=== PATIENT | female | born 1975 | race Caucasian/White ===

== ENCOUNTER 2016-05-29 17:54 | Emergency (ER) | payer BC ==
--- NOTE | 2016-05-29 18:34 | ER Document Report ---
ED Medical Screen (RME) - General Chief Complaint: Chest Pain Stated Complaint: PALPITATIONS,CHEST PAIN, DIZZY Time seen by provider: 18:30 Mode of Arrival: Wheelchair Information source: Patient Notes: 40-year-old female presents to ED chest pain with skipping heart rate. States she's been given body aches for a year now. Since 4 PM chest pain in the skipping heartbeat started. States she was short of breath and nauseated. States right now she is not short of breath or headache and has no nausea. Denies any cardiac history. She went to the urgent care 2 days ago for her bodyaches. I have greeted and performed a rapid initial assessment of this patient. A comprehensive ED assessment and evaluation of the patient, analysis of test results and completion of medical decision making process will be conducted by an additional ED providers. TRAVEL OUTSIDE OF THE [place] IN LAST 30 DAYS: No - Related Data Allergies/Adverse Reactions: No Known Allergies Allergy (Verified 08/13/15 20:29) Past Medical History - Past Medical History Cardiac Medical History: Denies: Hx Coronary Artery Disease, Hx Heart Attack, Hx Hypertension Pulmonary Medical History: Denies: Hx Asthma, Hx Bronchitis, Hx COPD, Hx Pneumonia Neurological Medical History: Denies: Hx Cerebrovascular Accident, Hx Seizures GI Medical History: Reports: Hx Gastroesophageal Reflux Disease, Hx Hiatal Hernia Musculoskeltal Medical History: Reports Hx Arthritis Psychiatric Medical History: Reports: Hx Anxiety Past Surgical History: Reports: Hx Section, Hx Cholecystectomy, Hx Oral Surgery, Hx Orthopedic Surgery, Hx Tubal Ligation. Denies: Hx Hysterectomy - Immunizations Hx Diphtheria, Pertussis, Tetanus Vaccination: Yes Physical Exam - Vital signs Vitals: Temp Pulse Resp BP Pulse Ox 98.5 F 94 16 131/80 H 100 05/29/16 18:24 05/29/16 18:24 05/29/16 18:24 05/29/16 18:24 05/29/16 18:24 Course - Vital Signs Vital signs: Temp Pulse Resp BP Pulse Ox 98.5 F 94 16 131/80 H 100 05/29/16 18:24 05/29/16 18:24 05/29/16 18:24 05/29/16 18:24 05/29/16 18:24
[2016-05-29] MEDS ORDERED: ASPIRIN 81 MG TABLET, CHEWABLE PO ONE (18:35)
--- NOTE | 2016-05-29 18:42 | EKG REPORT ---
SEVERITY:- NORMAL ECG - SINUS RHYTHM : Confirmed by: Nathalia Matthews MD 29-May-2016 18:41:17
[2016-05-29 18:58] LABS: ABSOLUTE EOSINOPHILS # (AUTO) 0.1 10^3/uL (0.0-0.6); ABSOLUTE LYMPHOCYTES (AUTO) 1.7 10^3/uL (0.5-4.7); ABSOLUTE MONOCYTES (AUTO) 0.7 10^3/uL (0.1-1.4); ABSOLUTE NEUT (AUTO) 7.7 10^3/uL (1.7-8.2); BASOPHILS % (AUTO) 0.4 % (0-2); EOSINOPHILS % (AUTO) 0.6 % (0-6); HEMATOCRIT 41.6 % (36.0-47.0); HEMOGLOBIN 13.3 g/dL (12.0-15.5); HGB HCT DIFFERENCE -1.7; LYMPHOCYTES % (AUTO) 16.8 % (13-45); MEAN CORPUSCULAR HEMOGLOBIN 29.3 pg (27.0-33.4); MEAN CORPUSCULAR HGB CONC 32.1 g/dL (32.0-36.0); MEAN CORPUSCULAR VOLUME 92 fl (80-97); MONOCYTES % (AUTO) 7.1 % (3-13); RED BLOOD COUNT 4.55 10^6/uL (3.72-5.28); RED CELL DISTRIBUTION WIDTH 13.5 % (11.5-14.0); SEGMENTED NEUTROPHILS % (AUTO) 75.1 % (42-78); WHITE BLOOD COUNT 10.2 10^3/uL (4.0-10.5)
[2016-05-29 19:03] LABS: APPEARANCE,URINE CLEAR; BILIRUBIN,URINE NEGATIVE (NEGATIVE); GLUCOSE, URINE NEGATIVE (NEGATIVE); KETONES,URINE NEGATIVE (NEGATIVE); LEUKOCYTE ESTERASE,URINE NEGATIVE (NEGATIVE); NITRITE,URINE NEGATIVE (NEGATIVE); PROTEIN,URINE NEGATIVE (NEGATIVE); URINE SPECIFIC GRAVITY 1.012; UROBILINOGEN,URINE NEGATIVE mg/dL (<2.0)
[2016-05-29 19:19] LABS: ALANINE AMINOTRANSFERASE 26 U/L (9-52); ALBUMIN 4.6 g/dL (3.5-5.0); ALKALINE PHOSPHATASE 59 U/L (38-126); ANION GAP 13 (5-19); ASPARTATE AMINO TRANSFERASE 19 U/L (14-36); BILIRUBIN,TOTAL 0.4 mg/dL (0.2-1.3); BLOOD UREA NITROGEN 15 mg/dL (7-20); CALCIUM 9.8 mg/dL (8.4-10.2); CARBON DIOXIDE 25 mmol/L (22-30); CHLORIDE 104 mmol/L (98-107); CREATINE KINASE 71 U/L (30-135); CREATININE RESULT 0.78 mg/dL (0.52-1.25); GLUCOSE 107 mg/dL (75-110); LIPASE 89.9 U/L (23-300); POTASSIUM 4.4 mmol/L (3.6-5.0); SODIUM 141.9 mmol/L (137-145); TOTAL PROTEIN 7.4 g/dL (6.3-8.2)
[2016-05-29 19:29] LABS: CREATINE KINASE MB 0.28 ng/mL (<4.55)
[2016-05-29 19:31] LABS: TROPONIN I < 0.012 ng/mL
--- NOTE | 2016-05-29 21:30 | ER Document Report ---
ED General - General Mode of Arrival: Wheelchair Information source: Patient TRAVEL OUTSIDE OF THE [place] IN LAST 30 DAYS: No - HPI Associated symptoms: Other - see above <CARLIE PALM - Last Filed: 05/30/16 00:28> <TIMOTHY CHATMAN - Last Filed: 05/30/16 03:09> - General Chief Complaint: Chest Pain Stated Complaint: PALPITATIONS,CHEST PAIN, DIZZY Notes: 40 year old female with no history of blood clots presents to the ED complaining of bilateral "burning" chest pain and bilateral upper abdominal pain that started earlier today. Patient is additionally complaining of experiencing heart flutter while walking. Patient states that she has had heart flutter in the past, but never while walking. Patient also claims that she has recently recovered from mono and states that she has been feeling off since then. Patient denies any heart palpitations, but states that her heart is beating hard and that she has an abnormal taste in her mouth secondary to this. Patient states that she takes Ativan as needed to help her sleep and a vitamin B12 shot. Patient has a past surgical history of a cholecystectomy, , and ovarian cyst removal. Patient denies starting any new medication. Patient also states that she had a thyroid test performed "a long time ago." (CARLIE PALM) - Related Data Allergies/Adverse Reactions: No Known Allergies Allergy (Verified 05/29/16 18:33) Past Medical History - General Information source: Patient - Social History Smoking Status: Never Smoker Chew tobacco use (# tins/day): No Frequency of alcohol use: None Drug Abuse: None Family History: Reviewed & Not Pertinent Patient has suicidal ideation: No Patient has homicidal ideation: No GI Medical History: Reports: Hx Gastroesophageal Reflux Disease, Hx Hiatal Hernia Musculoskeltal Medical History: Reports Hx Arthritis Psychiatric Medical History: Reports: Hx Anxiety Past Surgical History: Reports: Hx Section, Hx Cholecystectomy, Hx Oral Surgery, Hx Orthopedic Surgery, Hx Tubal Ligation - Immunizations Hx Diphtheria, Pertussis, Tetanus Vaccination: Yes <CARLIE PALM - Last Filed: 05/30/16 00:28> Review of Systems - Review of Systems Constitutional: See HPI, Recent illness - mono EENT: No symptoms reported Cardiovascular: See HPI, Chest pain - bilateral chest, Other - heart flutter while walking. denies: Palpitations Respiratory: No symptoms reported Gastrointestinal: See HPI, Abdominal pain - upper abdomen Genitourinary: No symptoms reported Female Genitourinary: No symptoms reported Musculoskeletal: No symptoms reported Skin: No symptoms reported Hematologic/Lymphatic: No symptoms reported Neurological/Psychological: See HPI, Sensory change - Abnormal taste the mouth secondary to a hard beating heart. -: Yes All other systems reviewed and negative <CARLIE PALM - Last Filed: 05/30/16 00:28> Physical Exam - Vital signs Interpretation: Normal - General General appearance: Alert In distress: None - HEENT Head: Normocephalic, Atraumatic Eyes: Normal Extraocular movements intact: Yes Pupils: PERRL - Respiratory Respiratory status: No respiratory distress Chest status: Nontender Breath sounds: Normal Chest palpation: Normal - Cardiovascular Rhythm: Regular Heart sounds: Normal auscultation - Abdominal Inspection: Normal - Back Back: Normal - Extremities General upper extremity: Normal inspection, Normal ROM General lower extremity: Normal inspection, Normal ROM - Neurological Neuro grossly intact: Yes Cognition: Normal Orientation: AAOx4 Ronald Coma Scale Eye Opening: Spontaneous [place] Coma Scale Verbal: Oriented Ronald Coma Scale Motor: Obeys Commands [place] Coma Scale Total: 15 Speech: Normal - Psychological Associated symptoms: Normal affect, Normal mood - Skin Skin Temperature: Warm Skin Moisture: Dry Skin Color: Normal <CARLIE PALM - Last Filed: 05/30/16 00:28> Course - Laboratory Result Diagrams: 05/29/16 18:35 05/29/16 18:35 <CARLIE PALM - Last Filed: 05/30/16 00:28> - Laboratory Result Diagrams: 05/29/16 18:35 05/29/16 18:35 - EKG Interpretation by Ne EKG shows normal: Sinus rhythm Rate: Normal Rhythm: NSR <TIMOTHY CHATMAN - Last Filed: 05/30/16 03:09> - Re-evaluation Re-evalutation: 05/30/16 Patient feels somewhat better after GI cocktail. EKG with no acute findings. Patient is not tachycardic here. Blood work within normal limits including negative troponin, normal TSH, and negative d-dimer. The patient is instructed to follow-up with her doctor and return if she has any further concerns. No risk factors for coronary artery disease. Stable for discharge. (TIMOTHY CHATMAN) - Vital Signs Vital signs: Temp Pulse Resp BP Pulse Ox 97.2 F 66 14 103/64 99 05/29/16 23:01 05/29/16 23:01 05/29/16 23:01 05/29/16 23:01 05/29/16 23:01 (CARLIE PALM) (TIMOTHY CHATMAN) Discharge <CARLIE PALM - Last Filed: 05/30/16 00:28> <TIMOTHY CHATMAN - Last Filed: 05/30/16 03:09> - Discharge Clinical Impression: Palpitations, Chest wall pain Condition: Stable Disposition: HOME, SELF-CARE Instructions: Chest Pain of Unclear Cause ([facility]), Palpitations (Irregular or Rapid Heartrate) ([facility]) Additional Instructions: Please follow-up with your doctor this week. Forms: Return to Work Scribe Attestation: 05/30/16 03:08 I personally performed the services described in the documentation, reviewed and edited the documentation which was dictated to the scribe in my presence, and it accurately records my words and actions. (TIMOTHY CHATMAN) Scribe Documentation - Scribe Written by Sharyn:: Sharyn Mendosa, 05/29/2016 22:48 acting as scribe for :: Dg <CARLIE PALM - Last Filed: 05/30/16 00:28>
[2016-05-29] MEDS ORDERED: SUCRALFATE 1 GM TABLET PO ONE (21:41)
[2016-05-29] MEDS ORDERED: MAG HYDROX/AL HYDROX/SIMETH SUSP 30 ML UDCUP PO ONE (21:41)
[2016-05-29] MEDS ORDERED: SIMETHICONE 80 MG TAB.CHEW PO ONE (21:41)
[2016-05-29 23:16] VITALS: BP 103/64
== END 2016-05-29 23:01 | disposition home or self-care (01) ==
LOC: ER 17:54
DX: R00.2 Palpitations (principal); R07.89 Other chest pain; R42 Dizziness and giddiness; R10.10 Upper abdominal pain, unspecified
CPT/HCPCS: 36415; 80053; 81001; 82550; 82553; 83690; 84443; 84484; 84703; 85025; 85379; 93005; 93010; 99284

== ENCOUNTER 2016-06-01 10:28 | Day surgery (SDC) | payer BC ==
[~2016-06-01 10:28] MED LIST: DIPHENHYDRAMINE HCL 50 MG/ML VIAL ONE; EPINEPHRINE INJ 1 MG/10 ML DISP.SYRIN ONE; FLUMAZENIL INJ 0.5 MG/5 ML VIAL IV ONE; GLUCAGON,HUMAN RECOMB 1 MG INJ ONE; MIDAZOLAM 2 MG/2 ML INJ ONE; NALOXONE HCL INJ/PF 0.4 MG/1 ML SDV ONE; ONDANSETRON HCL INJ/PF 4 MG/2 ML SDV ONE; PROMETHAZINE HCL INJ 25 MG/1 ML VIAL ONE
[2016-06-01] MEDS: MIDAZOLAM 2 MG/2 ML INJ ONE ×2 (11:07→11:11)
[2016-06-01] MEDS: FENTANYL CITRATE INJ/PF 100 MCG/2 ML AMPUL ONE ×2 (11:09→11:15)
--- NOTE | 2016-06-01 11:29 | Operative Report ---
Operative Report DATE OF SURGERY: 06/01/16 Operative Report: The risks benefits and alternatives of the procedure explained to the patient in detail and informed consent is obtained that GIF Olympus video scope was inserted into the patient's mouth and hypopharynx the esophagus is identified intubated and insufflated the scope was then advanced through the esophagus stomach and duodenum retroflexion maneuver is done the esophagus stomach and first and second portions of the duodenum examined PREOPERATIVE DIAGNOSIS: Epigastric pain POSTOPERATIVE DIAGNOSIS: Gastritis, duodenitis, hiatal hernia. Biopsies obtained rule out Helicobacter pylori. OPERATION: EGD with biopsy SURGEON: ALEJANDRA DE LA ROSA ANESTHESIA: Moderate Sedation - 6 mg Versed, 125 g of fentanyl. TISSUE REMOVED OR ALTERED: Gastric specimens obtained COMPLICATIONS: None. ESTIMATED BLOOD LOSS: none. INTRAOPERATIVE FINDINGS: Normal esophagus. duodenitis. Gastritis with erosions PROCEDURE: Patient tolerated the procedure well. No immediate postprocedure complications are noted. Patient discharged in good condition. Discharge date 06/01/2016. Discharge diet: Regular. Discharge activity: Regular. Patient does have a 2-3 week follow-up to discuss findings. We'll await on biopsies and treat for Helicobacter pylori if positive. Patient is instructed to call the office or proceed to the emergency room after any further problems or questions.
[2016-06-01 12:25] VITALS: BP 108/66
== END 2016-06-01 12:30 | disposition home or self-care (01) ==
LOC: END 10:28
PROVIDERS: ATTEND Internal Medicine Gastroenterology
PROC: 0DB68ZX Excision of Stomach, Via Natural or Artificial Opening Endoscopic, Diagnostic (ICD-10-PCS; principal; 2016-06-01 11:00)
DX: K29.80 Duodenitis without bleeding (principal); K29.50 Unspecified chronic gastritis without bleeding; K44.9 Diaphragmatic hernia without obstruction or gangrene; L40.9 Psoriasis, unspecified; Z79.899 Other long term (current) drug therapy
CPT/HCPCS: 43239; 88342 ×2; 88305 ×2; J2250; J3010; J1610; J2310; J0171; J1200; J2405; J2550; J3490

== ENCOUNTER 2016-08-09 10:55 | Emergency (ER) | payer BC ==
--- NOTE | 2016-08-09 11:51 | ER Document Report ---
ED Medical Screen (RME) - General Chief Complaint: Palpitations Stated Complaint: PALPITATIONS Notes: Patient is here because she's experiencing heart racing and feeling as if she is going to pass out. And having spells for about a year, but hasn't had one for several months. She started having recurrent symptoms this morning. She's been seeing a local provider who has been working her up for condition such as MS, workup negative. She is been treated with vitamin B 12 injections. Patient says that she is feels "sore" in her chest, but not actually chest pain. She is nauseated but no vomiting and diarrhea. Has had a recent cough and feels short of breath at times. LMP 07/27 TRAVEL OUTSIDE OF THE [place] IN LAST 30 DAYS: No - Related Data Allergies/Adverse Reactions: No Known Allergies Allergy (Verified 08/09/16 11:07) Past Medical History - Past Medical History Cardiac Medical History: Denies: Hx Coronary Artery Disease, Hx Heart Attack, Hx Hypertension Pulmonary Medical History: Denies: Hx Asthma, Hx Bronchitis, Hx COPD, Hx Pneumonia Neurological Medical History: Denies: Hx Cerebrovascular Accident, Hx Seizures Renal/ Medical History: Denies: Hx Peritoneal Dialysis GI Medical History: Reports: Hx Gastroesophageal Reflux Disease, Hx Hiatal Hernia Musculoskeltal Medical History: Reports Hx Arthritis Psychiatric Medical History: Reports: Hx Anxiety Past Surgical History: Reports: Hx Section, Hx Cholecystectomy, Hx Oral Surgery, Hx Orthopedic Surgery, Hx Tubal Ligation. Denies: Hx Hysterectomy - Immunizations Hx Diphtheria, Pertussis, Tetanus Vaccination: Yes Physical Exam - Vital signs Vitals: Temp Pulse Resp BP Pulse Ox 97.6 F 102 H 20 129/84 H 100 08/09/16 11:07 08/09/16 11:07 08/09/16 11:07 08/09/16 11:07 08/09/16 11:07 Course - Vital Signs Vital signs: Temp Pulse Resp BP Pulse Ox 97.6 F 102 H 20 129/84 H 100 08/09/16 11:07 08/09/16 11:07 08/09/16 11:07 08/09/16 11:07 08/09/16 11:07
[2016-08-09 12:25] LABS: ABSOLUTE EOSINOPHILS # (AUTO) 0.1 10^3/uL (0.0-0.6); ABSOLUTE LYMPHOCYTES (AUTO) 1.3 10^3/uL (0.5-4.7); ABSOLUTE MONOCYTES (AUTO) 0.5 10^3/uL (0.1-1.4); ABSOLUTE NEUT (AUTO) 4.8 10^3/uL (1.7-8.2); BASOPHILS % (AUTO) 0.4 % (0-2); EOSINOPHILS % (AUTO) 0.9 % (0-6); HEMATOCRIT 38.7 % (36.0-47.0); HGB HCT DIFFERENCE 0.3; MEAN CORPUSCULAR HEMOGLOBIN 30.2 pg (27.0-33.4); MEAN CORPUSCULAR HGB CONC 33.5 g/dL (32.0-36.0); MEAN CORPUSCULAR VOLUME 90 fl (80-97); MONOCYTES % (AUTO) 6.9 % (3-13); RED CELL DISTRIBUTION WIDTH 13.5 % (11.5-14.0); SEGMENTED NEUTROPHILS % (AUTO) 72.8 % (42-78); WHITE BLOOD COUNT 6.6 10^3/uL (4.0-10.5)
[2016-08-09 12:32] LABS: APPEARANCE,URINE CLEAR; BILIRUBIN,URINE NEGATIVE (NEGATIVE); GLUCOSE, URINE NEGATIVE (NEGATIVE); KETONES,URINE NEGATIVE (NEGATIVE); LEUKOCYTE ESTERASE,URINE NEGATIVE (NEGATIVE); NITRITE,URINE NEGATIVE (NEGATIVE); PROTEIN,URINE NEGATIVE (NEGATIVE); URINE SPECIFIC GRAVITY 1.008; UROBILINOGEN,URINE NEGATIVE mg/dL (<2.0)
[2016-08-09 12:38] LABS: ALBUMIN 4.3 g/dL (3.5-5.0); ANION GAP 10 (5-19); BILIRUBIN,TOTAL 0.4 mg/dL (0.2-1.3); BLOOD UREA NITROGEN 10 mg/dL (7-20); CARBON DIOXIDE 27 mmol/L (22-30); CHLORIDE 101 mmol/L (98-107); CREATININE RESULT 0.64 mg/dL (0.52-1.25); MAGNESIUM 1.7 mg/dL (1.6-2.3); NEONATAL BILIRUBIN RESULT 0.4 mg/dL (0.1-1.1); POTASSIUM 4.6 mmol/L (3.6-5.0); SODIUM 137.6 mmol/L (137-145); TOTAL PROTEIN 7.1 g/dL (6.3-8.2)
[2016-08-09 12:46] LABS: ALANINE AMINOTRANSFERASE 30 U/L (9-52); ALKALINE PHOSPHATASE 56 U/L (38-126); ASPARTATE AMINO TRANSFERASE 17 U/L (14-36); CALCIUM 8.9 mg/dL (8.4-10.2); CREATINE KINASE 56 U/L (30-135); GLUCOSE 104 mg/dL (75-110)
[2016-08-09 12:59] LABS: CREATINE KINASE MB 0.33 ng/mL (<4.55); TROPONIN I < 0.012 ng/mL
[2016-08-09 13:08] LABS: THYROID STIMULATING HORMONE 1.43 uIU/mL (0.47-4.68)
--- NOTE | 2016-08-09 13:34 | ER Document Report ---
ED Cardiac - General Mode of Arrival: Ambulatory Information source: Patient TRAVEL OUTSIDE OF THE [place] IN LAST 30 DAYS: No - HPI Patient complains to provider of: Other - Heart racing Associated symptoms: Other - see notes above <CARLIE PALM - Last Filed: 08/09/16 17:19> <TIMOTHY CHATMAN - Last Filed: 08/09/16 19:20> - General Chief Complaint: Palpitations Stated Complaint: PALPITATIONS Notes: 41 year old female presents to the ED complaining of intermittent heart racing that have been present for some time. Patient reports that when she was cleaning the house this morning she felt like she had "so much energy" and developed some dizziness. Patient went to work and developed shortness of breath and dizziness there. Patient is additionally complaining of right abdominal pain that wraps around to the right back. Patient reports that she has been having GI issues recently and eating makes her heart race. Patient states that recently she is waking up in the middle of the night with a racing heart. Patient recently had a hormone test performed by a naturopathic physician and states that she has a low progesterone level. Patient was started on progesterone cream and reports to using it for the first time yesterday. Patient also states that [facility] after getting a barium swallow study by Dr. Watson. Patient states that she is getting B12 shots and vitamin D supplements. (CARLIE PALM) - Related Data Allergies/Adverse Reactions: No Known Allergies Allergy (Verified 08/09/16 11:07) Past Medical History - General Information source: Patient - Social History Smoking Status: Unknown if Ever Smoked Family History: Reviewed & Not Pertinent Patient has suicidal ideation: No Patient has homicidal ideation: No Renal/ Medical History: Denies: Hx Peritoneal Dialysis GI Medical History: Reports: Hx Gastroesophageal Reflux Disease, Hx Hiatal Hernia Musculoskeltal Medical History: Reports Hx Arthritis Psychiatric Medical History: Reports: Hx Anxiety Past Surgical History: Reports: Hx Section, Hx Cholecystectomy, Hx Oral Surgery, Hx Orthopedic Surgery, Hx Tubal Ligation. Denies: Hx Hysterectomy - Immunizations Hx Diphtheria, Pertussis, Tetanus Vaccination: Yes <CARLIE PALM - Last Filed: 08/09/16 17:19> Review of Systems - Review of Systems Constitutional: No symptoms reported EENT: No symptoms reported Cardiovascular: See HPI, Heart racing, Dizziness Respiratory: See HPI, Short of breath Gastrointestinal: See HPI, Abdominal pain - right abdominal that radiates to right back Genitourinary: No symptoms reported Female Genitourinary: No symptoms reported Musculoskeletal: No symptoms reported Skin: No symptoms reported Hematologic/Lymphatic: No symptoms reported Neurological/Psychological: No symptoms reported -: Yes All other systems reviewed and negative <PALMPAULA APPLEUR - Last Filed: 08/09/16 17:19> Physical Exam - General General appearance: Alert In distress: None - HEENT Head: Normocephalic, Atraumatic Eyes: Normal Extraocular movements intact: Yes Pupils: PERRL - Respiratory Respiratory status: No respiratory distress Breath sounds: Normal - Cardiovascular Rhythm: Regular Heart sounds: Normal auscultation - Abdominal Inspection: Normal Distension: No distension Tenderness: Nontender - Back Back: Normal - Extremities General upper extremity: Normal inspection, Normal ROM General lower extremity: Normal inspection, Normal ROM - Neurological Neuro grossly intact: Yes Cognition: Normal Orientation: AAOx4 [place] Coma Scale Eye Opening: Spontaneous Ronald Coma Scale Verbal: Oriented [place] Coma Scale Motor: Obeys Commands [place] Coma Scale Total: 15 Speech: Normal - Psychological Associated symptoms: Anxious - Skin Skin Temperature: Warm Skin Moisture: Dry Skin Color: Normal <PAULA PALMUR - Last Filed: 08/09/16 17:19> Course - Laboratory Result Diagrams: 08/09/16 11:56 08/09/16 11:56 <PALMCARLIE - Last Filed: 08/09/16 17:19> - Laboratory Result Diagrams: 08/09/16 11:56 08/09/16 11:56 - Diagnostic Test Radiology reviewed: Reports reviewed - EKG Interpretation by [facility] EKG shows normal: Sinus rhythm Rate: Normal Rhythm: NSR <TIMOTHY CHATMAN - Last Filed: 08/09/16 19:20> - Re-evaluation Re-evalutation: 08/09/16 Patient with no acute findings on EKG or blood work. Patient's has a follow-up appointment actually today and would like to go to it currently. She has no complaints at this time. Stable for discharge. (TIMOTHY CHATMAN) - Vital Signs Vital signs: Temp Pulse Resp BP Pulse Ox 97.6 F 102 H 16 112/73 99 04/06/17 11:07 08/09/16 11:07 08/09/16 15:09 08/09/16 15:07 08/09/16 15:09 - Laboratory Laboratory results interpreted by me: 08/09/16 11:56 Urine Ascorbic Acid 40 H Discharge <CARLIE PALM - Last Filed: 08/09/16 17:19> <TIMOTHY CHATMAN - Last Filed: 08/09/16 19:20> - Discharge Clinical Impression: Palpitations Condition: Stable Disposition: HOME, SELF-CARE Instructions: Palpitations (Irregular or Rapid Heartrate) ([facility]) Referrals: WILMAN AMADO MD [ACTIVE STAFF] - Follow up in 3-5 days Scribe Attestation: 08/09/16 19:20 I personally performed the services described in the documentation, reviewed and edited the documentation which was dictated to the scribe in my presence, and it accurately records my words and actions. (TIMOTHY CHATMAN) Scribe Documentation - Scribe Written by Scribe:: Sharyn Mendosa, 08/09/2016 1459 acting as scribe for :: Dg <CARLIE PALM - Last Filed: 08/09/16 17:19>
[2016-08-09 15:08] VITALS: BP 112/73
--- NOTE | 2016-08-09 15:41 | EKG REPORT ---
SEVERITY:- OTHERWISE NORMAL ECG - SINUS TACHYCARDIA : Confirmed by: Nathalia Matthews MD 09-Aug-2016 15:41:06
== END 2016-08-09 15:10 | disposition home or self-care (01) ==
LOC: ER 10:55
DX: R00.2 Palpitations (principal); F41.9 Anxiety disorder, unspecified; R42 Dizziness and giddiness; R06.02 Shortness of breath; K44.9 Diaphragmatic hernia without obstruction or gangrene; R10.9 Unspecified abdominal pain; Z79.899 Other long term (current) drug therapy
CPT/HCPCS: 36415; 80053; 81001; 82533; 82550; 82553; 83735; 84439; 84443; 84484; 84703; 85025; 85379; 93005; 93010; 99285

== ENCOUNTER → 2017-02-18 | Outpatient (CLI) | payer BC ==
--- NOTE | 2017-02-19 17:48 | WOMENS IMAGING REPORT ---
EXAM DESCRIPTION: 3D SCREENING MAMMO BILAT COMPLETED DATE/TIME: 02/18/2017 10:57 am REASON FOR STUDY: ROUTINE SCREENING; Z12.31 Z12.31 ENCNTR SCREEN MAMMOGRAM FOR MALIGNANT NEOPLASM O F MELVA COMPARISON: None. TECHNIQUE: Standard craniocaudal and mediolateral oblique views of each breast recorded using digita l acquisition and breast tomosynthesis. LIMITATIONS: None. FINDINGS: No masses, calcifications or architectural distortion. No areas of suspicion. Read with the assistance of CAD. .[facility] - R2 Cenova Version 1.3 .[facility] - R2 Cenova Version 1.3 .[facility] - R2 Cenova Version 2.4 .[facility] [place] - R2 Cenova Version 2.4 .[facility] - R2 [employer] Building Machine Operator Version 9.2 IMPRESSION: NORMAL MAMMOGRAM. BIRADS 1. BREAST DENSITY: c. The breasts are heterogeneously dense, which may obscure small masses. BIRAD: 1 NEGATIVE RECOMMENDATION: ROUTINE SCREENING Please continue yearly bilateral screening tomosynthesis in February 2018 COMMENT: The patient has been notified of the results by letter per SA requirements. Additional no tification policies are in place for contacting patient with suspicious or incomplete findings. Quality ID #[id number]: The [employer] recommends an annual screening mammogram for women aged 40 years or over. This facility utilizes a reminder system to ensure that all patients receive reminder letters, and/or direct phone calls for appointments. This includes reminders for routine scr eening mammograms, diagnostic mammograms, or other Breast Imaging Interventions when appropriate. Th is patient will be placed in the appropriate reminder system. The [employer] (ACR) has developed recommendations for screening MRI of the breast s in certain patient populations, to be used in conjunction with mammography. Breast MRI surveillanc e may be appropriate for women with more than 20% lifetime risk of developing breast cancer as deter mined by genetic testing, significant family history of the disease, or history of mantle radiation f or Hodgkins Disease. ACR Practice Guidelines 2008. DBT Technology DBT is a type of tomographic mammography. With conventional mammography, overlapping breast tissue ma y make lesions difficult to detect, even with good compression. DBT uses an x-ray tube that rotates a round the breast, taking images at different angles. These images are then combined to create thin sl ices of the breast that the radiologist can view as a 3D reconstruction. The [place] unit can perform full-field digital mammograms (2D imaging); or DBT (3D imaging); or both, in a combination mode that quickly performs both the mammogram and the tomosynthesis scan while the breast is still compressed. PQRS 6045F: Fluoroscopic imaging is not utilized for breast tomosynthesis. TECHNICAL DOCUMENTATION: FINDING NUMBER: (1) ASSESSMENT: (1) JOB ID: [id number] [employer]- All Rights Reserved
== END ==
LOC: WI 10:38
PROVIDERS: ATTEND Advanced Practice Midwife
DX: Z12.31 Encounter for screening mammogram for malignant neoplasm of breast (principal)
CPT/HCPCS: 77063; G0202; 77067

== ENCOUNTER 2017-04-14 00:34 | Emergency (ER) | payer BC ==
[2017-04-14] MEDS ORDERED: ASPIRIN 81 MG TABLET, CHEWABLE PO ONE (01:33)
[2017-04-14] MEDS ORDERED: LORAZEPAM INJ 2 MG/1 ML VIAL IV ONE (01:34)
[2017-04-14] MEDS ORDERED: MAG HYDROX/AL HYDROX/SIMETH SUSP 30 ML UDCUP PO ONE (01:34)
[2017-04-14] MEDS ORDERED: METOCLOPRAMIDE HCL ORAL SOLN 10 MG/10 ML UDCUP PO ONE (01:34)
--- NOTE | 2017-04-14 01:35 | ER Document Report ---
ED General - General Chief Complaint: Chest Pain Stated Complaint: HEART PROBLEMS Time Seen by Provider: 04/14/17 01:16 Notes: Patient is a 41-year-old female presents emergency department complaining of palpitations over the past 3 days. Patient states that she has had symptoms with this over the past 2 years and is been told that is related to her fibromyalgia. States that she had been initiated on Zoloft and Ativan for this. She states that she has not been taking the Zoloft because she does not like taking pills. She states that this evening that she did take some Ativan but that she felt uncomfortable and so wanted to come to the ED to be evaluated. She does admit to chest wall pain but she states that that is normal for her ever since she was diagnosed with fibromyalgia couple years ago. At this time she denies any chest pressure, shortness of breath, pleurisy, nausea, vomiting. She does admit to epigastric discomfort but does have a history of GERD. Has been evaluated by cardiology previously. States that the past year she has had a negative echo, stress test and Holter monitor. Based off of that cardiac evaluation with Dr. ashraf she was initiated on Zoloft and Ativan for her symptoms and to follow-up with primary care. Patient has been noncompliant with establishing primary care TRAVEL OUTSIDE OF THE [place] IN LAST 30 DAYS: No - Related Data Allergies/Adverse Reactions: No Known Allergies Allergy (Verified 04/14/17 01:03) Past Medical History - Social History Smoking Status: Never Smoker Frequency of alcohol use: None Drug Abuse: None Family History: Reviewed & Not Pertinent Patient has suicidal ideation: No Patient has homicidal ideation: No - Past Medical History Cardiac Medical History: Denies: Hx Coronary Artery Disease, Hx Heart Attack, Hx Hypertension Pulmonary Medical History: Denies: Hx Asthma, Hx Bronchitis, Hx COPD, Hx Pneumonia Neurological Medical History: Denies: Hx Cerebrovascular Accident, Hx Seizures Renal/ Medical History: Denies: Hx Peritoneal Dialysis GI Medical History: Reports: Hx Gastroesophageal Reflux Disease, Hx Hiatal Hernia Musculoskeltal Medical History: Reports Hx Arthritis Psychiatric Medical History: Reports: Hx Anxiety Past Surgical History: Reports: Hx Section, Hx Cholecystectomy, Hx Oral Surgery, Hx Orthopedic Surgery, Hx Tubal Ligation. Denies: Hx Hysterectomy - Immunizations Hx Diphtheria, Pertussis, Tetanus Vaccination: Yes Review of Systems - Review of Systems Constitutional: No symptoms reported Cardiovascular: See HPI Respiratory: See HPI Gastrointestinal: See HPI -: Yes All other systems reviewed and negative Physical Exam - Vital signs Vitals: Resp Pulse Ox 15 100 04/14/17 00:53 04/14/17 00:53 - Notes Notes: PHYSICAL EXAM GENERAL: Alert, interacts well. Anxious LUNGS: Clear to auscultation bilaterally, no wheezes, rales, or rhonchi. No respiratory distress. HEART: Regular rate and rhythm. No murmurs, gallops, or rubs. ABDOMEN: Soft, nondistended, nontender. No guarding, rebound, or rigidity.. Bowel sounds present in all 4 quadrants. EXTREMITIES: Moves all 4 extremities spontaneously. No edema, radial and dorsalis pedis pulses 2/4 bilaterally. No cyanosis. NEUROLOGICAL: Alert and oriented x4. Normal speech. PSYCH: Normal affect, normal mood. SKIN: Warm, dry, normal turgor. No rashes or lesions noted. Course - Re-evaluation Re-evalutation: 04/14/17 04:21 Patient is very well in appearance, vitals within normal limits. Presentation is consistent with anxiety. Low clinical suspicion for ACS given clinical history, exam, EKG without ST elevations or depressions, and negative initial troponin. HEART score less than or equal to 3. PE also seems unlikely given clinical history, absence of tachycardia or dyspnea. Well's score of 0. D- dimer negative. Thyroid function normal. CXR without evidence of pneumothorax or pneumonia. No widened mediastinum. Aortic dissection also seems unlikely given history, symmetric pulses, CXR, and vitals. At this time will discharge with return precautions and follow-up recommendations. Verbal discharge instructions given a the bedside and opportunity for questions given. Medication warnings reviewed. Patient is in agreement with this plan and has verbalized understanding of return precautions and the need for primary care follow-up in the next 24-72 hours. - Vital Signs Vital signs: Temp Pulse Resp BP Pulse Ox 98.4 F 108 H 19 114/61 98 04/14/17 01:04 04/14/17 00:57 04/14/17 04:01 04/14/17 04:01 04/14/17 04:01 - Laboratory Result Diagrams: 04/14/17 00:53 04/14/17 00:53 Laboratory results interpreted by me: 04/14/17 04/14/17 00:53 00:53 WBC 11.0 H Potassium 3.5 L Glucose 151 H Creatine Kinase 156 H - Diagnostic Test Radiology reviewed: Image reviewed, Reports reviewed - EKG Interpretation by Me EKG shows normal: Sinus rhythm Rate: Normal Rhythm: NSR When compared to previous EKG there are: No significant change Discharge - Discharge Clinical Impression: Palpitations, Anxiety Condition: Good Disposition: HOME, SELF-CARE Instructions: Anxiety ([facility]), Palpitations (Irregular or Rapid Heartrate) ([facility]) Referrals: LORRI DOMINGO MD [COMMUNITY BASED STAFF] - Follow up as needed [facility] [Provider Group] - Follow up as needed WILMAN AMADO MD [ACTIVE STAFF] - Follow up as needed
[2017-04-14 01:45] LABS: ABSOLUTE EOSINOPHILS # (AUTO) 0.1 10^3/uL (0.0-0.6); ABSOLUTE LYMPHOCYTES (AUTO) 3.4 10^3/uL (0.5-4.7); ABSOLUTE MONOCYTES (AUTO) 0.8 10^3/uL (0.1-1.4); ABSOLUTE NEUT (AUTO) 6.6 10^3/uL (1.7-8.2); BASOPHILS % (AUTO) 0.3 % (0-2); EOSINOPHILS % (AUTO) 1.2 % (0-6); HEMATOCRIT 40.3 % (36.0-47.0); HEMOGLOBIN 13.6 g/dL (12.0-15.5); HGB HCT DIFFERENCE 0.5; LYMPHOCYTES % (AUTO) 31.1 % (13-45); MEAN CORPUSCULAR HEMOGLOBIN 31.5 pg (27.0-33.4); MEAN CORPUSCULAR HGB CONC 33.9 g/dL (32.0-36.0); MEAN CORPUSCULAR VOLUME 93 fl (80-97); MONOCYTES % (AUTO) 7.5 % (3-13); RED BLOOD COUNT 4.33 10^6/uL (3.72-5.28); RED CELL DISTRIBUTION WIDTH 12.9 % (11.5-14.0); SEGMENTED NEUTROPHILS % (AUTO) 59.9 % (42-78)
[2017-04-14 02:05] LABS: ALANINE AMINOTRANSFERASE 32 U/L (9-52); ALBUMIN 4.4 g/dL (3.5-5.0); ALKALINE PHOSPHATASE 75 U/L (38-126); ANION GAP 16 (5-19); ASPARTATE AMINO TRANSFERASE 21 U/L (14-36); BILIRUBIN,DIRECT 0.3 mg/dL (0.0-0.4); BILIRUBIN,TOTAL 0.5 mg/dL (0.2-1.3); BLOOD UREA NITROGEN 13 mg/dL (7-20); CALCIUM 9.1 mg/dL (8.4-10.2); CARBON DIOXIDE 22 mmol/L (22-30); CHLORIDE 106 mmol/L (98-107); CREATINE KINASE 156 U/L (30-135); GLUCOSE 151 mg/dL (75-110); POTASSIUM 3.5 mmol/L (3.6-5.0); TOTAL PROTEIN 7.3 g/dL (6.3-8.2)
--- NOTE | 2017-04-14 03:47 | EKG REPORT ---
SEVERITY:- BORDERLINE ECG - SINUS TACHYCARDIA BORDERLINE T ABNORMALITIES, ANTERIOR LEADS : Confirmed by: Basilia Garcia 14-Apr-2017 03:46:56
[2017-04-14 04:20] LABS: FREE T3 3.73 pg/mL (2.77-5.27)
[2017-04-14 04:34] VITALS: BP 114/61
--- NOTE | 2017-04-14 06:06 | RADIOLOGY REPORT (SQ) ---
EXAM DESCRIPTION: CHEST SINGLE VIEW CLINICAL HISTORY: 41 years, Female, chest pain COMPARISON: 01/26/2016 FINDINGS: Adequate lung volumes, clear parenchyma, normal cardiac silhouette, and intact bony thorax. IMPRESSION: Normal chest radiograph. 2011 [facility] [employer]- All Rights Reserved
== END 2017-04-14 04:34 | disposition home or self-care (01) ==
LOC: ER 00:34
DX: R00.2 Palpitations (principal); F41.9 Anxiety disorder, unspecified; R07.89 Other chest pain; Z90.49 Acquired absence of other specified parts of digestive tract
CPT/HCPCS: 93005; 99285; 96374; 36415; 84439; 82553; 82550; 85025; 80053; 84484; 84481; 85379; 71010; 93010; J2060